=== PATIENT | female | born 1950 | race Caucasian/White ===

== ENCOUNTER 2020-05-08 05:44 | Inpatient (IN) ==
[2020-05-02 11:28] LABS: Apearance,Urine CLEAR (Clear); Bilirubin,Urine Negative (Negative); Blood, Urine Negative (Negative); Glucose,Urine (UA) Negative (Negative); Ketones,Urine Negative (Negative); Nitrite,Urine Negative (Negative); Protein,Urine Negative; Squamous Epithelial Cell,Urine Occasional /HPF (0-10); Urine Color Yellow (Yellow); Urine Specific Gravity 1.003 (1.001-1.035); Urine Urobilinogen < 2.0 EU/DL (0.2-1.0); WBC,Urine <1 /HPF (0-6)
[2020-05-02 11:43] LABS: Basophils # 0.1 10*3/uL (0.0-0.2); Basophils % 0.6 % (0.0-0.8); Eosinophils # 0.2 10*3/uL (0.0-0.87); Eosinophils % 2.3 % (0.00-10.9); Hematocrit 38.5 VOL% (35.7-47.0); Hemoglobin 12.3 GM/DL (12.0-16.0); Immature Granulocytes % 0.9 %; Immature Granulocytes Absolute 0.07 #; Lymphocytes # 1.5 10*3/uL (1.4-4.0); Lymphocytes % 18.6 % (21.3-54.2); Mean Corpuscular HGB Conc 31.9 GM/DL (32-36); Mean Corpuscular Volume 90.6 FL (87-102); Mean Platelet Volume 10.2 FL (9.6-12.0); Neutrophils % 67.6 % (38.7-73.9); Platelet Count 280 T/CUMM (130-400); Red Blood Count 4.25 MC/CUMM (3.8-5.5); Red Cell Distribution Width 13.3 % (9.3-17.3); White Blood Count 8.2 T/CUMM (4-12)
[2020-05-02 12:02] LABS: INR 0.9; PT Patient Result 10.2 SECS (9.8-11.9)
[2020-05-02 12:13] LABS: Albumin 3.1 G/DL (3.4-5.0); Bilirubin,Total 0.5 MG/DL (0.2-1.0); Calcium 9.4 MG/DL (8.5-10.1); Osmolality,Calculated 277.4 MOS/KG (273-304); Total Protein 7.4 G/DL (6.4-8.3)
[2020-05-08] MEDS ORDERED: ceFAZolin 1,000 MG VIAL ONE (05:49)
[2020-05-08] MEDS ORDERED: VANCOMYCIN 1,000 MG VIAL ONE (05:49)
[2020-05-08] MEDS ORDERED: FAMOTIDINE 20 MG TABLET PO ONE (06:24)
[2020-05-08] MEDS ORDERED: ACETAMINOPHEN 500 MG TABLET PO ONE (06:24)
[2020-05-08] MEDS ORDERED: GABAPENTIN 400 MG CAPSULE PO ONE (06:24)
[2020-05-08] MEDS ORDERED: DIAZEPAM 5 MG TABLET PO ONE (06:24)
[2020-05-08] MEDS ORDERED: ceFAZolin 1,000 MG in SYRINGE 1 EACH IV ONE (06:30)
[2020-05-08] MEDS ORDERED: VANCOMYCIN INJ 1,000 MG in SODIUM CHLORIDE 0.9% 250 ML IV ONE (06:30)
[2020-05-08] MEDS ORDERED: LACTATED RINGERS 1,000 ML IV SCH (06:30)
[2020-05-08] MEDS ORDERED: GABAPENTIN 400 MG CAPSULE ONE (06:34)
[2020-05-08] MEDS ORDERED: ACETAMINOPHEN 500 MG TABLET ONE (06:34)
[2020-05-08] MEDS ORDERED: FAMOTIDINE 20 MG TABLET ONE (06:34)
[2020-05-08] MEDS ORDERED: DIAZEPAM 5 MG TABLET ONE (06:34)
[2020-05-08] MEDS ORDERED: BISACODYL 10 MG SUPP RECTAL PRN (07:07)
[2020-05-08] MEDS ORDERED: MORPHINE 4 MG/1 ML VIAL IV PRN (07:07)
[2020-05-08] MEDS ORDERED: MAGNESIUM HYDROXIDE SUSP 30 ML UDCUP PO PRN (07:07)
[2020-05-08] MEDS ORDERED: PROMETHAZINE 25 MG/1 ML VIAL IM PRN (07:07)
[2020-05-08] MEDS ORDERED: diphenhydrAMINE CAP 25 MG CAPSULE PO PRN (07:07)
[2020-05-08] MEDS ORDERED: TEMAZEPAM 7.5 MG CAPSULE PO PRN (07:07)
[2020-05-08] MEDS ORDERED: ONDANSETRON 4 MG/2 ML VIAL IV PRN ×2 (07:07→08:56)
[2020-05-08] MEDS ORDERED: BUTALBITAL/ACETAMIN/CAFFEINE 50-325-40 MG TABLET PO PRN (07:10)
[2020-05-08] MEDS ORDERED: traMADol 50 MG TABLET PO PRN (07:10)
[2020-05-08] MEDS ORDERED: propofoL 200 MG/20 ML VIAL IV ONE (08:47)
[2020-05-08] MEDS ORDERED: DEXAMETHASONE 4 MG/1 ML VIAL ONE (08:48)
[2020-05-08] MEDS ORDERED: LABETALOL 20 MG/4 ML SYRINGE IV ONE (08:48)
[2020-05-08] MEDS ORDERED: TRANEXAMIC ACID 1,000 MG/10 ML VIAL ONE (08:48)
[2020-05-08] MEDS ORDERED: fentaNYL 100 MCG/2 ML VIAL ONE ×2 (08:48)
[2020-05-08] MEDS ORDERED: SEVOFLURANE 1 UNIT/15 MINUTE INH ONE (08:48)
[2020-05-08] MEDS ORDERED: LIDOCAINE 2% 5 ML VIAL ONE (08:48)
[2020-05-08] MEDS ORDERED: MIDAZOLAM 2 MG/2 ML VIAL ONE (08:48)
[2020-05-08] MEDS ORDERED: ROPIVACAINE 0.5% 30 ML VIAL ONE (08:49)
[2020-05-08] MEDS ORDERED: GLYCOPYRROLATE 0.4 MG/2 ML VIAL ONE (08:49)
[2020-05-08] MEDS ORDERED: ROCURONIUM 100 MG/10 ML VIAL IV ONE (08:49)
[2020-05-08] MEDS ORDERED: SODIUM CHLORIDE 0.9% 1,000 ML IV ONE (08:49)
[2020-05-08] MEDS ORDERED: NEOSTIGMINE 10 MG/10 ML VIAL ONE (08:49)
[2020-05-08] MEDS ORDERED: SODIUM CHLORIDE 0.9% 250 ML IV ONE (08:49)
[2020-05-08] MEDS ORDERED: SODIUM CHLORIDE 0.9% 100 ML IV ONE (08:49)
[2020-05-08] MEDS ORDERED: PROMETHAZINE INJ 25 MG in SODIUM CHLORIDE 0.9% 50 ML IV PRN (08:56)
[2020-05-08] MEDS ORDERED: diphenhydrAMINE 50 MG/1 ML VIAL IV PRN (08:56)
[2020-05-08] MEDS: MEPERIDINE 25 MG/1 ML VIAL IV PRN ×2 (09:05→09:35)
[2020-05-08] MEDS: GABAPENTIN 300 MG CAPSULE PO SCH ×2 (12:48→21:21)
[2020-05-08] MEDS: CETIRIZINE 10 MG TABLET PO SCH (12:49)
[2020-05-08] MEDS: LOSARTAN 50 MG TABLET PO SCH (14:11)
[2020-05-08] MEDS: ceFAZolin 2,000 MG in PREMIX 1 EACH IV SCH ×2 (14:12→21:22)
[2020-05-08] MEDS: METOPROLOL TARTRATE 100 MG TABLET PO SCH (14:19)
[2020-05-08] MEDS: NORTRIPTYLINE 25 MG CAPSULE PO SCH (21:21)
[2020-05-08] MEDS: PANTOPRAZOLE 40 MG TABLET PO SCH (21:22)
[2020-05-08] MEDS: DOCUSATE SODIUM 100 MG CAPSULE PO SCH (21:22)
[2020-05-09 05:36] LABS: Basophils % 0.1 % (0.0-0.8); Hematocrit 36.7 VOL% (35.7-47.0); Hemoglobin 11.9 GM/DL (12.0-16.0); Immature Granulocytes % 0.7 %; Immature Granulocytes Absolute 0.11 #; Lymphocytes # 1.1 10*3/uL (1.4-4.0); Lymphocytes % 7.2 % (21.3-54.2); Mean Corpuscular HGB Conc 32.4 GM/DL (32-36); Mean Corpuscular Volume 88.9 FL (87-102); Mean Platelet Volume 10.3 FL (9.6-12.0); Platelet Count 233 T/CUMM (130-400); Red Blood Count 4.13 MC/CUMM (3.8-5.5); Red Cell Distribution Width 13.2 % (9.3-17.3); White Blood Count 15.5 T/CUMM (4-12)
[2020-05-09] MEDS: LEVOTHYROXINE 125 MCG TABLET PO SCH (05:55)
[2020-05-09 06:22] LABS: Osmolality,Calculated 281.4 MOS/KG (273-304)
[2020-05-09] MEDS: LACTULOSE 20 GM/30 ML UDCUP PO PRN (09:58)
[2020-05-09] MEDS: POTASSIUM CHLORIDE 8 MEQ CAPSULE PO SCH (09:59)
[2020-05-09] MEDS: FUROSEMIDE 20 MG TABLET PO PRN (09:59)
[2020-05-09] MEDS: METOPROLOL TARTRATE 100 MG TABLET PO SCH (09:59)
[2020-05-09] MEDS: CETIRIZINE 10 MG TABLET PO SCH (09:59)
[2020-05-09] MEDS: DOCUSATE SODIUM 100 MG CAPSULE PO SCH ×2 (09:59→21:28)
[2020-05-09] MEDS: GABAPENTIN 300 MG CAPSULE PO SCH ×2 (09:59→21:27)
[2020-05-09] MEDS: MULTIVITAMIN (CENTRUM) TABLET PO SCH (10:00)
[2020-05-09] MEDS: ESTROGENS (CONJ) 0.625 MG TABLET PO SCH (10:00)
[2020-05-09] MEDS: CHOLECALCIFEROL 1,000 UNIT TABLET PO SCH (10:00)
[2020-05-09] MEDS: LOSARTAN 50 MG TABLET PO SCH (10:23)
[2020-05-09] MEDS ORDERED: hydrALAZINE 20 MG/1 ML VIAL IV PRN (15:05)
[2020-05-09] MEDS ORDERED: FONDAPARINUX 2.5 MG/0.5 ML SYRINGE SUBCUT SCH (18:00)
[2020-05-09] MEDS: NORTRIPTYLINE 25 MG CAPSULE PO SCH (21:27)
[2020-05-09] MEDS: PANTOPRAZOLE 40 MG TABLET PO SCH (21:27)
[2020-05-10] MEDS: LEVOTHYROXINE 125 MCG TABLET PO SCH (06:18)
[2020-05-10] MEDS: POTASSIUM CHLORIDE 8 MEQ CAPSULE PO SCH (09:11)
[2020-05-10] MEDS: ESTROGENS (CONJ) 0.625 MG TABLET PO SCH (09:11)
[2020-05-10] MEDS: CETIRIZINE 10 MG TABLET PO SCH (09:11)
[2020-05-10] MEDS: CHOLECALCIFEROL 1,000 UNIT TABLET PO SCH (09:12)
[2020-05-10] MEDS: LOSARTAN 50 MG TABLET PO SCH (09:12)
[2020-05-10] MEDS: DOCUSATE SODIUM 100 MG CAPSULE PO SCH (09:12)
[2020-05-10] MEDS: GABAPENTIN 300 MG CAPSULE PO SCH (09:13)
[2020-05-10] MEDS: MULTIVITAMIN (CENTRUM) TABLET PO SCH (09:13)
[2020-05-10] MEDS: FUROSEMIDE 20 MG TABLET PO PRN (09:13)
[2020-05-10] MEDS: METOPROLOL TARTRATE 100 MG TABLET PO SCH (09:13)
[2020-05-10] MEDS: LACTULOSE 20 GM/30 ML UDCUP PO PRN (09:14)
[2020-05-10 11:32] VITALS: BP 190/70
== END 2020-05-10 13:15 | disposition home health service (06) | DRG 470 ==
LOC: N.OR 05:44 → N.SDSINP 05:47 → N.3E 12:03
PROVIDERS: ADMIT Orthopaedic Surgery; ATTEND Orthopaedic Surgery

== ENCOUNTER 2022-04-07 05:47 | Inpatient (IN) ==
[2022-04-01 10:58] LABS: Basophils # 0.1 10*3/uL (0.0-0.2); Basophils % 0.7 % (0.0-0.8); Eosinophils # 0.2 10*3/uL (0.0-0.87); Eosinophils % 2.3 % (0.00-10.9); Hematocrit 39.8 VOL% (35.7-47.0); Hemoglobin 13.4 GM/DL (12.0-16.0); Immature Granulocytes % 0.4 %; Immature Granulocytes Absolute 0.03 #; Lymphocytes # 1.1 10*3/uL (1.4-4.0); Lymphocytes % 14.9 % (21.3-54.2); Mean Corpuscular HGB Conc 33.7 GM/DL (32-36); Mean Corpuscular Volume 83.4 FL (87-102); Mean Platelet Volume 10.3 FL (9.6-12.0); Monocytes # 0.8 10*3/uL (0.11-0.8); Monocytes % 10.3 % (1.7-12.7); Neutrophils % 71.4 % (38.7-73.9); Platelet Count 287 T/CUMM (130-400); Red Blood Count 4.77 MC/CUMM (3.8-5.5); Red Cell Distribution Width 12.6 % (9.3-17.3); White Blood Count 7.5 T/CUMM (4-12)
[2022-04-01 11:07] LABS: INR 0.9; Partial Thromboplastin Time 24.8 SECS (23.7-32.9)
[2022-04-01 11:14] LABS: Bacteria,Urine Occasional /HPF (Few); Mucus,Urine Occasional /LPF (Occasional); RBC,Urine 1 /HPF (0-4); Squamous Epithelial Cell,Urine Occasional /HPF (0-10)
[2022-04-01 11:15] LABS: Bilirubin,Urine Negative (Negative); Blood, Urine Negative (Negative); Glucose,Urine (UA) Negative (Negative); Ketones,Urine Negative (Negative); Nitrite,Urine Negative (Negative); Protein,Urine Negative (Negative); Urine Appearance Clear (Clear); Urine Color Yellow (Yellow); Urine Specific Gravity 1.015 (1.001-1.035); Urine Urobilinogen 0.2 eU/dL (<2.0)
[2022-04-01 11:19] LABS: Albumin 3.4 G/DL (3.4-5.0); Bilirubin,Total 0.4 MG/DL (0.20-1.00); Calcium 9.8 MG/DL (8.5-10.1); Osmolality,Calculated 258.9 MOS/KG (273-304); Potassium 4.9 MMOL/L (3.5-5.1); Total Protein 6.9 G/DL (6.4-8.2)
[2022-04-07] MEDS ORDERED: VANCOMYCIN INJ 1,000 MG in SODIUM CHLORIDE 0.9% 250 ML IV ONE (06:00)
[2022-04-07] MEDS ORDERED: DEXMEDETOMIDINE 200 MCG/2 ML VIAL ONE (06:05)
[2022-04-07] MEDS ORDERED: MIDAZOLAM 2 MG/2 ML VIAL ONE (06:05)
[2022-04-07] MEDS ORDERED: GABAPENTIN 400 MG CAPSULE PO ONE (06:24)
[2022-04-07] MEDS ORDERED: FAMOTIDINE 20 MG TABLET PO ONE (06:24)
[2022-04-07] MEDS ORDERED: SODIUM CHLORIDE 0.9% 1,000 ML IV SCH (06:30)
[2022-04-07] MEDS ORDERED: buprenorphine HCL 0.3 MG/ML VIAL ONE (06:43)
[2022-04-07 06:45] LABS: Calcium 10.1 MG/DL (8.5-10.1); Osmolality,Calculated 260.8 MOS/KG (273-304); Potassium 3.7 MMOL/L (3.5-5.1)
[2022-04-07] MEDS ORDERED: hydrALAZINE 20 MG/1 ML VIAL ONE (06:53)
[2022-04-07] MEDS ORDERED: MAGNESIUM HYDROXIDE SUSP 30 ML UDCUP PO PRN (07:26)
[2022-04-07] MEDS ORDERED: ONDANSETRON 4 MG/2 ML VIAL IV PRN (07:27)
[2022-04-07] MEDS ORDERED: LACTULOSE 20 GM/30 ML UDCUP PO PRN (07:27)
[2022-04-07] MEDS ORDERED: diphenhydrAMINE CAP 25 MG CAPSULE PO PRN (07:27)
[2022-04-07] MEDS ORDERED: TEMAZEPAM 7.5 MG CAPSULE PO PRN (07:27)
[2022-04-07] MEDS ORDERED: PROMETHAZINE 25 MG/1 ML VIAL IM PRN (07:27)
[2022-04-07] MEDS ORDERED: BISACODYL 10 MG SUPP RECTAL PRN (07:27)
[2022-04-07] MEDS ORDERED: BUTALBITAL/ACETAMIN/CAFFEINE 50-325-40 MG TABLET PO PRN (07:29)
[2022-04-07] MEDS ORDERED: CYCLOBENZAPRINE 10 MG TABLET PO PRN (07:29)
[2022-04-07] MEDS ORDERED: MORPHINE 2 MG/1 ML SYRINGE IV PRN (07:35)
[2022-04-07] MEDS ORDERED: BUPIVACAINE MPF 0.5% 30 ML VIAL ONE (07:55)
[2022-04-07] MEDS ORDERED: TRANEXAMIC ACID 1,000 MG/10 ML VIAL ONE (07:57)
[2022-04-07] MEDS: PANTOPRAZOLE 40 MG TABLET PO SCH (11:56)
[2022-04-07] MEDS: GABAPENTIN 300 MG CAPSULE PO SCH ×2 (15:44→20:40)
[2022-04-07] MEDS: ceFAZolin 2,000 MG/50 ML DUPLEX IV SCH ×2 (15:45→21:00)
[2022-04-07] MEDS ORDERED: LOSARTAN/HCTZ 50-12.5 MG TABLET PO ONE (17:00)
[2022-04-07] MEDS ORDERED: hydrALAZINE 20 MG/1 ML VIAL IV PRN (17:03)
[2022-04-07] MEDS: traZODone 50 MG TABLET PO SCH (20:40)
[2022-04-07] MEDS: DOCUSATE SODIUM 100 MG CAPSULE PO SCH (20:40)
[2022-04-07] MEDS: OXYBUTYNIN 5 MG TABLET PO SCH (20:40)
[2022-04-07] MEDS: FONDAPARINUX 2.5 MG/0.5 ML SYRINGE SUBCUT SCH (20:40)
[2022-04-07] MEDS: METOPROLOL TARTRATE 100 MG TABLET PO SCH (22:04)
[2022-04-08] MEDS: METOPROLOL TARTRATE 100 MG TABLET PO SCH ×2 (00:05→20:54)
[2022-04-08 05:20] LABS: Calcium 10.1 MG/DL (8.5-10.1); Osmolality,Calculated 271.1 MOS/KG (273-304); Potassium 3.7 MMOL/L (3.5-5.1)
[2022-04-08 05:30] LABS: Basophils % 0.2 % (0.0-0.8); Eosinophils % 0.2 % (0.00-10.9); Hematocrit 34.8 VOL% (35.7-47.0); Hemoglobin 11.7 GM/DL (12.0-16.0); Immature Granulocytes % 0.6 %; Immature Granulocytes Absolute 0.08 #; Lymphocytes # 1.4 10*3/uL (1.4-4.0); Lymphocytes % 10.5 % (21.3-54.2); Mean Corpuscular HGB Conc 33.6 GM/DL (32-36); Mean Corpuscular Volume 85.1 FL (87-102); Mean Platelet Volume 9.7 FL (9.6-12.0); Monocytes # 1.6 10*3/uL (0.11-0.8); Monocytes % 11.9 % (1.7-12.7); Neutrophils % 76.6 % (38.7-73.9); Platelet Count 270 T/CUMM (130-400); Red Blood Count 4.09 MC/CUMM (3.8-5.5); Red Cell Distribution Width 12.7 % (9.3-17.3); White Blood Count 13.1 T/CUMM (4-12)
[2022-04-08] MEDS: LEVOTHYROXINE 100 MCG TABLET PO SCH (05:49)
[2022-04-08] MEDS ORDERED: ACETAMINOPHEN 325 MG TABLET PO PRN (07:27)
[2022-04-08] MEDS: LOSARTAN/HCTZ 50-12.5 MG TABLET PO SCH (08:14)
[2022-04-08] MEDS: POTASSIUM CHLORIDE 10 MEQ TABLET PO SCH (08:15)
[2022-04-08] MEDS: GABAPENTIN 300 MG CAPSULE PO SCH ×3 (08:15→20:56)
[2022-04-08] MEDS: DOCUSATE SODIUM 100 MG CAPSULE PO SCH ×2 (08:15→20:54)
[2022-04-08] MEDS: DULoxetine 30 MG CAPSULE PO SCH (08:15)
[2022-04-08] MEDS: OXYBUTYNIN 5 MG TABLET PO SCH ×2 (08:15→20:54)
[2022-04-08] MEDS: MULTIVITAMIN (CENTRUM) TABLET PO SCH (08:15)
[2022-04-08] MEDS: PANTOPRAZOLE 40 MG TABLET PO SCH (08:15)
[2022-04-08] MEDS: CHOLECALCIFEROL 1,000 UNIT TABLET PO SCH (15:14)
[2022-04-08] MEDS: hydrALAZINE 20 MG/1 ML VIAL IV PRN ×3 (15:15→23:53)
[2022-04-08] MEDS: MORPHINE 2 MG/1 ML SYRINGE IV PRN (18:09)
[2022-04-08] MEDS: traZODone 50 MG TABLET PO SCH (20:54)
[2022-04-08] MEDS: FONDAPARINUX 2.5 MG/0.5 ML SYRINGE SUBCUT SCH (20:54)
[2022-04-08] MEDS ORDERED: hydrALAZINE 10 MG TABLET PO SCH (21:00)
[2022-04-08] MEDS ORDERED: hydrALAZINE 25 MG TABLET PO SCH (21:00)
[2022-04-09] MEDS: hydrALAZINE 20 MG/1 ML VIAL IV PRN ×3 (04:11→11:10)
[2022-04-09] MEDS: MORPHINE 2 MG/1 ML SYRINGE IV PRN ×2 (04:12→09:45)
[2022-04-09 05:17] LABS: Risk Ratio 1.58; VLDL Cholesterol 7.6 MG/DL
[2022-04-09] MEDS: LEVOTHYROXINE 100 MCG TABLET PO SCH (05:43)
[2022-04-09] MEDS: LOSARTAN/HCTZ 50-12.5 MG TABLET PO SCH (08:34)
[2022-04-09] MEDS: MULTIVITAMIN (CENTRUM) TABLET PO SCH (08:34)
[2022-04-09] MEDS: DOCUSATE SODIUM 100 MG CAPSULE PO SCH ×2 (08:34→21:32)
[2022-04-09] MEDS: POTASSIUM CHLORIDE 10 MEQ TABLET PO SCH (08:34)
[2022-04-09] MEDS: PANTOPRAZOLE 40 MG TABLET PO SCH (08:34)
[2022-04-09] MEDS: GABAPENTIN 300 MG CAPSULE PO SCH ×3 (08:34→21:31)
[2022-04-09] MEDS: CHOLECALCIFEROL 1,000 UNIT TABLET PO SCH (08:34)
[2022-04-09] MEDS: DULoxetine 30 MG CAPSULE PO SCH (08:34)
[2022-04-09] MEDS: OXYBUTYNIN 5 MG TABLET PO SCH ×2 (08:35→21:31)
[2022-04-09] MEDS ORDERED: hydrALAZINE 25 MG TABLET PO ONE (09:30)
[2022-04-09] MEDS: METOPROLOL TARTRATE 100 MG TABLET PO SCH (21:31)
[2022-04-09] MEDS: FONDAPARINUX 2.5 MG/0.5 ML SYRINGE SUBCUT SCH (21:32)
[2022-04-09] MEDS: traZODone 50 MG TABLET PO SCH (21:32)
[2022-04-10] MEDS: LEVOTHYROXINE 100 MCG TABLET PO SCH (05:46)
[2022-04-10] MEDS: GABAPENTIN 300 MG CAPSULE PO SCH (08:37)
[2022-04-10] MEDS: PANTOPRAZOLE 40 MG TABLET PO SCH (08:37)
[2022-04-10] MEDS: CHOLECALCIFEROL 1,000 UNIT TABLET PO SCH (08:37)
[2022-04-10] MEDS: MULTIVITAMIN (CENTRUM) TABLET PO SCH (08:38)
[2022-04-10] MEDS: DOCUSATE SODIUM 100 MG CAPSULE PO SCH (08:38)
[2022-04-10] MEDS: DULoxetine 30 MG CAPSULE PO SCH (08:38)
[2022-04-10] MEDS: POTASSIUM CHLORIDE 10 MEQ TABLET PO SCH (08:38)
[2022-04-10] MEDS: OXYBUTYNIN 5 MG TABLET PO SCH (08:38)
[2022-04-10] MEDS: LOSARTAN/HCTZ 50-12.5 MG TABLET PO SCH (08:38)
[2022-04-10] MEDS ORDERED: LABETALOL 20 MG/4 ML SYRINGE IV ONE (09:25)
[2022-04-10] MEDS: FONDAPARINUX 2.5 MG/0.5 ML SYRINGE SUBCUT SCH (09:46)
[2022-04-10] MEDS: MORPHINE 2 MG/1 ML SYRINGE IV PRN (09:46)
[2022-04-10 11:11] VITALS: BP 178/72
[2022-04-12] MEDS ORDERED: GALCANEZUMAB GNLM 120 MG/ML SUBCUT SCH (07:30)
== END 2022-04-10 11:16 | disposition home health service (06) | DRG 470 ==
LOC: N.OR 05:47 → N.SDSINP 05:48 → N.3E 10:02
PROVIDERS: ADMIT Orthopaedic Surgery; ATTEND Orthopaedic Surgery